=== PATIENT | male | born 1965 | race Two or more races ===

== ENCOUNTER 2017-01-24 23:59 | Emergency (ER) | payer MEDICAID, OTHER ==
[~2017-01-24] VITALS: Ht 172.7 cm; Wt 72.6 kg
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
[2017-01-25] MEDS ORDERED: ACETAMINOPHEN 325 MG TABLET PO ONE (02:30)
[2017-01-25 02:38] VITALS: BP 131/73
== END 2017-01-25 02:38 | disposition home or self-care (01) ==
LOC: ER 01-25 00:01
DX: S70.01XA Contusion of right hip, initial encounter (principal); E11.42 Type 2 diabetes mellitus with diabetic polyneuropathy; F17.200 Nicotine dependence, unspecified, uncomplicated; Z96.641 Presence of right artificial hip joint; Z96.698 Presence of other orthopedic joint implants; W05.0XXA Fall from non-moving wheelchair, initial encounter; Y93.89 Activity, other specified; Y92.89 Other specified places as the place of occurrence of the external cause; Y99.9 Unspecified external cause status
CPT/HCPCS: 73502; 99284; A4606; Z7610